=== PATIENT | female | born 1960 | race Caucasian/White ===

== ENCOUNTER 2017-03-08 10:58 | Emergency (ER) | payer OTHER ==
[~2017-03-08] VITALS: Ht 170.2 cm; Wt 121.6 kg
[2017-03-08 11:07] VITALS: BP 152/85
--- NOTE | 2017-03-08 11:16 | NUR ---
Patient to bed 12.
--- NOTE | 2017-03-08 11:17 | NUR ---
57/F YO FEMALE BIB FAMILY FOR RIGHT SHOULDER PAIN X 3 DAYS. SKIN IS PINK/WARM/DRY; AAOX4 WITH EVEN AND STEADY GAIT; LUNGS CLEAR BL; HR EVEN AND REGULAR; PATIENT STATES PAIN OF 8/10 AT THIS TIME; PATIENT POSITIONED FOR COMFORT; HOB ELEVATED; BEDRAILS UP X2; BED DOWN. ER MD MADE AWARE OF PT STATUS.
--- NOTE | 2017-03-08 11:26 | NUR ---
Dr. Pham evaluating patient at bedside.
[2017-03-08 11:52] VITALS: BP 146/79
--- NOTE | 2017-03-08 11:52 | NUR ---
Patient discharged with BP 146/79 DENIES HEADACHE AT THIS TIME. Written and verbal after care instructions given and explained. Patient alert, oriented and verbalized understanding of instructions. Ambulatory with steady gait. All questions addressed prior to discharge. ID band removed. Patient advised to follow up with PMD. Rx of VALIUM given. Patient educated on indication of medication including possible reaction and side effects. Opportunity to ask questions provided and answered.
== END 2017-03-08 11:52 | disposition home or self-care (01) ==
LOC: MED 10:58
DX: M79.622 Pain in left upper arm (principal); Z88.0 Allergy status to penicillin; Z88.5 Allergy status to narcotic agent
CPT/HCPCS: 99283